=== PATIENT | female | born 1995 | race Caucasian/White ===

== ENCOUNTER 2017-03-24 11:10 | Emergency (ER) | payer MEDICAID ==
[2017-03-24 11:30] VITALS: BP 138/94
[2017-03-24] MEDS ORDERED: Ketorolac 60 MG/2 ML SDV IM ONE (11:52)
[2017-03-24] MEDS ORDERED: Penicillin V Potassium 500 MG Tab PO ONE (11:52)
--- NOTE | 2017-03-24 12:01 | EDM.PDOC ---
ED HPI GENERAL MEDICAL PROBLEM - General Chief Complaint: ENT Problem Stated Complaint: MOUTH PAIN Time Seen by Provider: 03/24/17 11:40 Source of Information: Reports: Patient History Limitations: Reports: No Limitations - History of Present Illness INITIAL COMMENTS - FREE TEXT/NARRATIVE: Patient is a 21-year-old female who presents to the ED complaining of pain to a broken tooth located to the left upper palate. She has severe dental decay present. Tooth broke approximately 2 months ago and has progressively gotten worse. States recently she has been utilizing ibuprofen and Tylenol for discomfort. She has been seen by a dentist with instructions to have the tooth removed. Patient does not have the money at this point to have it removed. Patient denies any swelling to her gumline, fever/chills, nausea/vomiting, swelling to her face, or any additional complaints. She has not been on and antibiotic recently. She has no drug allergies known at this time. 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 ED EXAM, ENT - Physical Exam Exam: See Below Exam Limited By: No Limitations General Appearance: Alert, WD/WN, Mild Distress, Other (No facial swelling) Ears: Normal External Exam, Hearing Grossly Normal Nose: Normal Inspection Mouth/Throat: Normal Inspection, Normal Lips, Dental Pain (#15 tooth), Dental Tenderness (#15 tooth), Dental Trauma (#15 tooth: Lateral aspect of the tooth is fractured off with severe dental decay present.). No: Drooling, Dry Mucous Membrane, Throat Pain, Throat Swelling, Tongue Swelling, Tonsillar Erythema, Tonsillar Exudates, Tonsillar Swelling, Trismus, Uvular Deviation Head: Atraumatic, Normocephalic Neck: Normal Inspection, Supple, Non-Tender, Full Range of Motion. No: Lymphadenopathy (L), Lymphadenopathy (R) Respiratory/Chest: No Respiratory Distress, No Accessory Muscle Use Cardiovascular: Normal Peripheral Pulses, Regular Rate, Rhythm Extremities: Normal Inspection Neurological: Alert, Oriented, CN II-XII Intact, Normal Cognition Psychiatric: Normal Affect, Normal Mood Skin: Warm, Dry, Intact, Normal Color Course - Vital Signs Last Recorded V/S: Last Vital Signs Temp 98 F 03/24/17 11:26 Pulse 71 03/24/17 11:26 Resp 16 03/24/17 11:26 BP 138/94 H 03/24/17 11:26 Pulse Ox 97 03/24/17 11:26 - Orders/Labs/Meds Meds: Medications Discontinued Medications Generic Name Dose Route Start Last Admin Trade Name Freq PRN Reason Stop Dose Admin Ketorolac Tromethamine 60 mg 03/24/17 11:52 03/24/17 12:13 Toradol IM 03/24/17 11:53 60 mg ONETIME ONE Administration Penicillin V Potassium 500 mg 03/24/17 11:52 03/24/17 12:17 Veetids PO 03/24/17 11:53 500 mg ONETIME ONE Administration - Re-Assessments/Exams Free Text/Narrative Re-Assessment/Exam: Performed super alveolar block to the #15 tooth. Patient had immediate pain relief. Ordered penicillin 500 mg by mouth and Toradol 60 mg IM. Will discharge patient home with instructions as documented. Departure - Departure Time of Disposition: 11:58 Disposition: Home, Self-Care 01 Condition: Good Clinical Impression: Pain due to dental caries - Discharge Information Prescriptions: Hydrocodone/Acetaminophen [Norwell 5-325 Tablet] 1 each PO Q6H PRN #3 tablet PRN Reason: Pain (Severe 7-10) Penicillin V Potassium [IJP: Penicillin V Potassium] 500 mg PO .EVERY 8 HOURS # 40 tab Instructions: Tooth Injuries, [id number] Referrals: PCP,None [Primary Care Provider] - Forms: ED Department Discharge Additional Instructions: Make an appointment to have her tooth removed for definitive treatment. Take Tylenol and ibuprofen in alternating fashion for pain. For severe pain take Norwell one tab every 6 hours as needed. No driving while taking the Norwell. Sleep in a reclining position. Refrain from chewing food on the affected side. Return to the ED as needed for any new or worsening symptoms.
== END 2017-03-24 12:20 | disposition home or self-care (01) ==
LOC: JD.ED 11:10
DX: K02.9 Dental caries, unspecified (principal); E66.9 Obesity, unspecified; Z68.37 Body mass index [BMI] 37.0-37.9, adult
CPT/HCPCS: 64400; 99283; A9270; J1885; 96372